=== PATIENT | male | born 1965 | race Caucasian/White ===

== ENCOUNTER 2018-04-06 02:26 | Emergency (ER) | payer BC ==
[2018-04-06] MEDS ORDERED: SODIUM CHLORIDE 0.9% 500 ML IV ONE (02:31)
[2018-04-06] MEDS ORDERED: ONDANSETRON HCL IV 4 MG/2 ML VIAL IV ONE (02:31)
[2018-04-06] MEDS ORDERED: KETOROLAC 30 MG/ML VIAL IVP ONE (02:31)
--- NOTE | 2018-04-06 02:36 | Emergency Department Record ---
History of Present Illness - General Chief complaint: Flank Pain Stated complaint: FLANK PAIN Time Seen by Provider: 04/06/18 02:27 Source: Patient Mode of Arrival: Ambulatory Limitations: No limitations - History of Present Illness Initial comments: 52 yo male presents with right flank pain. The onset was about 2 days ago. The pain has been coming and going. No fever. The pain has resolved around 10am this morning. It returned about midnight. He has had prior renal stones. He reports he had one stent in the past. He has some nausea. He denies any other recent changes in his health. MD Complaint: Other (Right flank pain) -: Days(s) (on and off 2 days) Location: Right flank Radiation: R flank Severity: Moderate Quality: Aching Consistency: Constant Improves with: None Worsens with: None Other Reports: Nausea/vomiting - Related Data Previous Rx's Medication Instructions Recorded Hydrocodone/Acetaminophen [[place] 1 tab PO Q6H PRN #10 tab 04/06/18 5mg/325mg] Tamsulosin HCl [Flomax] 0.4 mg PO DAILY #10 cap.er.24h 04/06/18 Allergies Allergy/AdvReac Type Severity Reaction Status Date / Time No Known Drug Allergies Allergy Verified 12/21/14 09:34 Review of Systems Constitutional: Denies: Chills, Fever, Malaise, Weakness Eyes: Denies: Eye discharge ENT: Denies: Congestion, Throat pain Respiratory: Denies: Cough, Dyspnea Cardiovascular: Denies: Chest pain, Palpitations, Syncope Endocrine: Denies: Fatigue Gastrointestinal: Reports: As per HPI, Abdominal pain, Nausea. Denies: Diarrhea Genitourinary: Denies: Dysuria, Frequency, Hematuria, Testicular pain Musculoskeletal: Reports: Back pain Skin: Denies: Bruising, Change in color, Rash Neurological: Denies: Headache Psychiatric: Denies: Anxiety Hematological/Lymphatic: Denies: Easy bleeding, Easy bruising Physical Exam - General General Appearance: Alert, Oriented x3, Cooperative, No acute distress Limitations: No limitations - Head Head exam: Atraumatic, Normal inspection - Eye Eye exam: Normal appearance. negative: Conjunctival injection - ENT ENT exam: Normal exam Ear exam: Normal external inspection Nasal Exam: Normal inspection Mouth exam: Normal external inspection - Neck Neck exam: Normal inspection - Respiratory Respiratory exam: Normal lung sounds bilaterally. negative: Respiratory distress - Cardiovascular Cardiovascular Exam: Regular rate, Normal rhythm, Normal heart sounds - GI/Abdominal GI/Abdominal exam: Soft. negative: Distended, Guarding, Rebound, Rigid, Tenderness - Rectal Rectal exam: Deferred - exam: Deferred - Extremities Extremities exam: Normal inspection. negative: Pedal edema, Tenderness - Back Back exam: Reports: Full ROM. Denies: CVA tenderness (R), CVA tenderness (L), Paraspinal tenderness, Rash noted, Tenderness, Vertebral tenderness - Neurological Neurological exam: Alert, Oriented X3 - Psychiatric Psychiatric exam: Normal affect, Normal mood. negative: Agitated, Anxious - Skin Skin exam: Dry, Intact, Normal color, Warm. negative: Abrasion, Cyanosis, Diaphoretic, Erythema Course - Reevaluation(s) Reevaluation #1: The labs were reviewed The CBC demonstrated a WBC count of 18 The CR is 1.3 with normal GFR greater that 60 UA with blood otherwise negative for any signs of infection Pain not controlled. Morphine ordered. 04/06/18 03:11 The patient now reports good pain control. No nausea. Waiting for CT report. 04/06/18 03:41 04/06/18 03:[address] was reviewed. 4mm x 3mm obstructing proximal right renal stone. Bilateral non obstructing stones largest on the right at 3 x 2mm. 04/06/18 05:08 The patient remains comfortable at this time. 04/06/18 06:37 We discussed home care, follow up and reasons to return. Medical Decision Making - Lab Data Result diagrams: 04/06/18 02:35 04/06/18 02:35 Disposition Disposition: Discharge Clinical Impression: Renal colic on right side Disposition: Home, Self-Care Condition: (1) Good Instructions: Flank Pain (ED) Additional Instructions: Take the prescriptions provided today as directed. Call your family doctor. Call to schedule the next available appointment for a recheck. Return to ED if your symptoms worsen or if you have any new concerns. Review the final Emergency Record and test results with your doctor on follow up You have been referred to urology for follow up of your right sided renal stone. Call today to schedule an appointment Prescriptions: Hydrocodone/Acetaminophen [[place] 5mg/325mg] 1 tab PO Q6H PRN #10 tab PRN Reason: Pain - General Tamsulosin HCl [Flomax] 0.4 mg PO DAILY #10 cap.er.24h Referrals: [facility] Specialty Clinics [Provider Group] EWA HUIZAR M.D. [MEDICAL DOCTOR] - Forms: Patient Portal Access Quality - Quality Measures Quality Measures: N/A - Blood Pressure Screening Does Patient Have Any of the Following: No Blood Pressure Classification: Pre-Hypertensive BP Reading Systolic Measurement: 170 Diastolic Measurement: 88 Screening for High Blood Pressure: < Pre-Hypertensive BP, F/U Documented > [ G8950] Pre-Hypertensive Follow-up Interventions: Referral to alternative/primary care provider.
[2018-04-06 02:49] LABS: BASO % 0.3 % (0-6); EOS % 0.9 % (0-6); GRAN % 71.2 % (47-80); HEMATOCRIT 46.5 % (42.0-52.0); HEMOGLOBIN 16.1 gm/dl (14.0-18.0); MEAN CELL VOLUME 92.8 fl (81-97); MEAN CORPUSCULAR HEMOGLOBIN 32.1 pg (27-33); MEAN CORPUSCULAR HGB CONC 34.6 g/dl (32-36); MEAN PLATELET VOLUME 11.9 fl (7.4-10.4); MONO % 14.6 % (0-9); PLATELET COUNT 312 K/uL (130-400); RED BLOOD COUNT 5.01 M/uL (4.40-5.70); RED CELL DISTRIBUTION WIDTH 14.9 % (11.5-14.5); WHITE BLOOD COUNT W/O DIFF 18.2 K/uL (4.2-12.2)
[2018-04-06 02:56] LABS: URINE APPEARANCE CLEAR; URINE BILIRUBIN NEGATIVE (NEGATIVE); URINE BLOOD SMALL (NEGATIVE); URINE COLOR YELLOW; URINE GLUCOSE (UA) NEGATIVE (NEGATIVE); URINE KETONE NEGATIVE (NEGATIVE); URINE LEUKOCYTE ESTERASE NEGATIVE (NEGATIVE); URINE NITRITE NEGATIVE (NEGATIVE); URINE PROTEIN TRACE (NEGATIVE)
[2018-04-06 02:58] LABS: BLOOD UREA NITROGEN 27 mg/dL (6-20); CREATININE 1.3 mg/dL (0.7-1.2); EST GLOMERULAR FILTRATION RATE > 60 mL/min
[2018-04-06 02:59] LABS: URINE BACTERIA NONE SEEN; URINE EPITHELIAL CELLS 0 - 2 (FEW); URINE WBC 0 - 2 (0-2/hpf)
[2018-04-06 03:01] LABS: GLUCOSE,RANDOM 164 mg/dL (74-109)
[2018-04-06] MEDS ORDERED: TAMSULOSIN HCL 0.4 MG CAP.ER.24H PO ONE (03:07)
[2018-04-06] MEDS ORDERED: MORPHINE SULFATE 10 MG/ML VIAL IVP ONE (03:10)
[2018-04-06] MEDS ORDERED: HYDROCODONE/APAP 5/325MG TABLET PO ONE (06:35)
--- NOTE | 2018-04-08 14:06 | CT SCAN REPORT ---
EXAM: CT SCAN ABDOMEN/PELVIS WO CONTRAST HISTORY: RIGHT-SIDED FLANK AND BACK PAIN FOR TWO DAYS. HISTORY OF RENAL STONES. HISTORY ALSO OF HODGKIN DISEASE AND THYROID CANCER. TECHNIQUE: Routine noncontrast CT abdomen and pelvis. COMPARISON: None. FINDINGS: Lung bases clear. Unremarkable noncontrast appearance of the liver, gallbladder, adrenal glands, and pancreas. Spleen is not visualized compatible with provided history of prior splenectomy. 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 Upper pole moiety is nondilated and without calculi. Mild to moderate dilation of the right lower pole moiety. 3 mm calculus within the lower renal pole. 5 mm calculus within the proximal aspect of the right lower pole moiety ureter. Nonobstructing left lower pole intrarenal calculus. Urinary bladder is nondistended. No definite bladder calculi. No focal colonic thickening or inflammatory changes. Noninflamed appendix in the right lower quadrant. Stomach and small bowel are nondilated. No free air or free fluid. Multiple nonenlarged retroperitoneal lymph nodes are noted. Minimal prostatic calcifications. Mildly patulous fat-containing left inguinal canal. Aortoiliac arterial access is minimally calcified without evidence of aneurysmal dilatation. Likely moderate bilateral hip joint osteoarthrosis. IMPRESSION: 1. OBSTRUCTING 5 MM CALCULOUS WITHIN THE PROXIMAL RIGHT URETER RESULTING IN MILD TO MODERATE RIGHT HYDRONEPHROSIS. ADDITIONAL BILATERAL INTRARENAL CALCULI ARE NOTED. 2. 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 JOB NUMBER: [id number] MTDD
== END 2018-04-06 06:48 | disposition home or self-care (01) ==
LOC: ER 02:26
DX: N20.0 Calculus of kidney (principal); R11.2 Nausea with vomiting, unspecified; Z87.442 Personal history of urinary calculi; Z85.71 Personal history of Hodgkin lymphoma; Z85.850 Personal history of malignant neoplasm of thyroid; F17.210 Nicotine dependence, cigarettes, uncomplicated
CPT/HCPCS: 99284 ×2; 96374; 96375; 96361; 85025; 80048; 81001; 74176; J1885; J2405; J2270

== ENCOUNTER 2018-04-08 06:25 | Emergency (ER) | payer BC ==
[2018-04-08] MEDS ORDERED: MORPHINE SULFATE 10 MG/ML VIAL IVP ONE (06:40)
[2018-04-08] MEDS ORDERED: ONDANSETRON HCL IV 4 MG/2 ML VIAL IVP ONE (06:41)
[2018-04-08] MEDS ORDERED: 0.9 % SODIUM CHLORIDE 1,000 ML BAG IV ONE (06:41)
[2018-04-08 06:49] LABS: BASO % 0.3 % (0-6); EOS % 0.4 % (0-6); GRAN % 76.7 % (47-80); HEMATOCRIT 44.2 % (42.0-52.0); HEMOGLOBIN 15.2 gm/dl (14.0-18.0); LYMPH % 11.6 % (16-45); MEAN CELL VOLUME 93.6 fl (81-97); MEAN CORPUSCULAR HEMOGLOBIN 32.2 pg (27-33); MEAN CORPUSCULAR HGB CONC 34.4 g/dl (32-36); MEAN PLATELET VOLUME 12.2 fl (7.4-10.4); PLATELET COUNT 297 K/uL (130-400); RED BLOOD COUNT 4.72 M/uL (4.40-5.70); RED CELL DISTRIBUTION WIDTH 14.6 % (11.5-14.5); WHITE BLOOD COUNT W/O DIFF 19.4 K/uL (4.2-12.2)
--- NOTE | 2018-04-08 06:49 | Emergency Department Record ---
History of Present Illness - General Source: Patient Mode of Arrival: Ambulatory Limitations: No limitations - History of Present Illness Initial comments: pt c/o r flank pain. pt was here 2 days ago and was found to have a 4x3 mm stone in the proximal ureter w some mild renal insufficiency. he has been having intermittent pain since. the pain returned 4 hours ago and has not stopped. MD Complaint: Other Onset/Timin -: Hour(s) Location: Right flank Severity scale (1-10): 10 Quality: Sharp, Stabbing Consistency: Constant, Getting worse Improves with: None Worsens with: None Reports: Nausea/vomiting <Karmen aGn - Last Filed: 04/08/18 06:44> <Dany Mejia - Last Filed: 04/08/18 09:13> - General Chief complaint: Flank Pain Stated complaint: FLANK PAIN Time Seen by Provider: 04/08/18 06:36 - Related Data Previous Rx's Medication Instructions Recorded Hydrocodone/Acetaminophen [[place] 1 tab PO Q6H PRN #10 tab 04/06/18 5mg/325mg] Tamsulosin HCl [Flomax] 0.4 mg PO DAILY #10 cap.er.24h 04/06/18 Allergies Allergy/AdvReac Type Severity Reaction Status Date / Time No Known Drug Allergies Allergy Verified 12/21/14 09:34 Travel Screening - Travel/Exposure Within Last 30 Days Have you traveled within the last 30 days?: No <Karmen Gan - Last Filed: 04/08/18 06:44> Review of Systems Reviewed: No additional complaints except as noted below Constitutional: Reports: As per HPI. Denies: Chills, Fever, Malaise, Night sweats, Weakness, Weight change Eyes: Reports: As per HPI. Denies: Eye discharge, Eye pain, Photophobia, Vision change ENT: Reports: As per HPI. Denies: Congestion, Dental pain, Ear pain, Epistaxis , Hearing loss, Throat pain Respiratory: Reports: As per HPI. Denies: Cough, Dyspnea, Hemoptysis, Stridor, Wheezes Cardiovascular: Reports: As per HPI. Denies: Arrhythmia, Chest pain, Dyspnea on exertion, Edema, Murmurs, Orthopnea, Palpitations, Paroxysmal nocturnal dyspnea, Rheumatic Fever, Syncope Endocrine: Reports: As per HPI. Denies: Fatigue, Heat or cold intolerance, Polydipsia, Polyuria Gastrointestinal: Reports: As per HPI, Abdominal pain, Nausea, Vomiting. Denies : Constipation, Diarrhea, Hematemesis, Hematochezia, Melena Genitourinary: Reports: As per HPI, Testicular pain. Denies: Dysuria, Frequency , Hematuria, Incontinence, Retention, Testicular mass, Urgency Musculoskeletal: Reports: As per HPI, Back pain. Denies: Arthralgia, Gout, Joint swelling, Myalgia, Neck pain Skin: Reports: As per HPI. Denies: Bruising, Change in color, Change in hair/ nails, Lesions, Pruritus, Rash Neurological: Reports: As per HPI. Denies: Abnormal gait, Confusion, Headache, Numbness, Paresthesias, Seizure, Tingling, Tremors, Vertigo, Weakness Psychiatric: Reports: As per HPI. Denies: Anxiety, Auditory hallucinations, Depression, Homicidal thoughts, Suicidal thoughts, Visual hallucinations Hematological/Lymphatic: Reports: As per HPI. Denies: Anemia, Blood Clots, Easy bleeding, Easy bruising, Swollen glands <Karmen Gan - Last Filed: 04/08/18 06:44> Past Medical History - SOCIAL HISTORY Smoking Status: Current every day smoker Alcohol Use: None Drug Use: None - RESPIRATORY Hx Respiratory Disorders: No - CARDIOVASCULAR Hx Cardio Disorders: Yes Hx Irregular Heartbeat: Yes (had ablation and it's corrected) - NEURO Hx Neuro Disorders: No - GI Hx GI Disorders: No - Hx Genitourinary Disorders: Yes Hx Kidney Stones: Yes (had previous renal stent) - ENDOCRINE Hx Endocrine Disorders: No - MUSCULOSKELETAL Hx Musculoskeletal Disorders: Yes Hx Arthritis: Yes - PSYCH Hx Psych Problems: No - HEMATOLOGY/ONCOLOGY Hx Hematology/Oncology Disorders: Yes Hx Cancer: Yes (Thyroid and Hodgkin's) Hx Chemotherapy: Yes Hx Radiation Therapy: No <Karmen Gan - Last Filed: 04/08/18 06:44> Family Medical History Any Significant Family History?: Yes Hx Stroke: Father <Karmen Gan - Last Filed: 04/08/18 06:44> Physical Exam - General General Appearance: Alert, Oriented x3, Cooperative, Moderate distress - Head Head exam: Normal inspection - Eye Eye exam: Normal appearance, PERRL, EOMI Pupils: Normal accommodation - ENT ENT exam: Normal exam, Mucous membranes moist, Normal external ear exam, Normal orophraynx Ear exam: Normal external inspection. negative: External canal tenderness Nasal Exam: Normal inspection. negative: Discharge, Sinus tenderness Mouth exam: Normal external inspection, Tongue normal Teeth exam: Normal inspection. negative: Dental caries Throat exam: Normal inspection. negative: Tonsillar erythema, Tonsillar exudate - Neck Neck exam: Normal inspection, Full ROM. negative: Tenderness - Respiratory Respiratory exam: Normal lung sounds bilaterally. negative: Respiratory distress - Cardiovascular Cardiovascular Exam: Regular rate, Normal rhythm, Normal heart sounds - GI/Abdominal GI/Abdominal exam: Soft, Normal bowel sounds, Tenderness - Rectal Rectal exam: Deferred - exam: Deferred - Extremities Extremities exam: Normal inspection, Full ROM, Normal capillary refill. negative: Tenderness - Back Back exam: Reports: Normal inspection, Full ROM. Denies: Muscle spasm, Rash noted, Tenderness - Neurological Neurological exam: Alert, CN II-XII intact, Normal gait, Oriented X3 - Psychiatric Psychiatric exam: Normal affect, Normal mood - Skin Skin exam: Dry, Intact, Normal color, Warm <Karmen Gan - Last Filed: 04/08/18 06:44> Course Vital Signs 04/08/18 06:37 Temperature 97.5 F L Pulse Rate [ 73 Pulse Ox Probe] Respiratory 36 H Rate Blood Pressure 103/65 [Left Arm] Pulse Ox 99 - Reevaluation(s) Reevaluation #1: 04/08/18 06:[address] mejia <Karmen Gan - Last Filed: 04/08/18 06:44> Vital Signs 04/08/18 04/08/18 06:37 07:33 Temperature 97.5 F L 98.4 F Pulse Rate [ 73 61 Pulse Ox Probe] Respiratory 36 H 16 Rate Blood Pressure 103/65 133/83 [Left Arm] Pulse Ox 99 95 - Reevaluation(s) Reevaluation #2: The patient is doing better at this time. His pain is much improved and we are waiting on his CT report and urinalysis. 04/08/18 07:58 Reevaluation #3: Due to the patient's continued pain I did feel the need to consult Dr. Brar. I did contact him at [facility] and he would like the patient transferred there for further evaluation. I then did contact Dr. Garcia in the ED and he did accept the patient in an ER to ER transfer. 04/08/18 08:45 <Dany Mejia - Last Filed: 04/08/18 09:13> Medical Decision Making - Lab Data Result diagrams: 04/08/18 06:40 04/08/18 06:40 <Karmen Gan - Last Filed: 04/08/18 06:44> - Data Complexity MDM Data: Labs Ordered and/or Reviewed, X-Ray Ordered and/or Reviewed - Lab Data Result diagrams: 04/08/18 06:30 04/08/18 06:30 Lab Results 04/08/18 04/08/18 Range/Units 06:30 06:30 WBC 19.4 H (4.2-12.2) K/uL RBC 4.72 (4.40-5.70) M/uL Hgb 15.2 (14.0-18.0) gm/dl Hct 44.2 (42.0-52.0) % MCV 93.6 (81-97) fl MCH 32.2 (27-33) pg MCHC 34.4 (32-36) g/dl RDW 14.6 H (11.5-14.5) % Plt Count 297 (130-400) K/uL MPV 12.2 H (7.4-10.4) fl Gran % 76.7 (47-80) % Lymphocytes % 11.6 L (16-45) % Monocytes % 11.0 H (0-9) % Eosinophils % 0.4 (0-6) % Basophils % 0.3 (0-6) % Sodium 139 (136-145) mmol/L Potassium 4.7 H (3.4-4.5) mmol/L Chloride 98 (98-107) mmol/L Carbon Dioxide 24.0 (22-29) mmol/L Anion Gap 17.0 H (7-16) BUN 24 H (6-20) mg/dL Creatinine 1.3 H (0.7-1.2) mg/dL Estimated GFR > 60 mL/min Random Glucose 146 H (74-109) mg/dL Calcium 9.4 (8.6-10.0) mg/dL - Radiology Data Radiology results: Report reviewed (CT: R 6x3 mm distal R ureter stone with hydro.) <Dany Mejia - Last Filed: 04/08/18 09:13> Disposition <Karmen Gan - Last Filed: 04/08/18 06:44> <Dany Mejia - Last Filed: 04/08/18 09:13> Forms: Patient Portal Access Quality - Blood Pressure Screening Does Patient Have Any of the Following: No Blood Pressure Classification: Normal BP Reading Systolic Measurement: 103 Diastolic Measurement: 65 Screening for High Blood Pressure: < Normal BP, F/U Not Required > [G8783] <Karmen Gan - Last Filed: 04/08/18 06:44> - Quality Measures Quality Measures: N/A - Blood Pressure Screening View Details: Yes Does Patient Have Any of the Following: No Blood Pressure Classification: Hypertensive Reading Systolic Measurement: 138 Diastolic Measurement: 91 Screening for High Blood Pressure: < First Hypertensive BP, F/U Documented > [ G8950] First Hypertensive Follow-up Interventions: Referral to alternative/primary care provider. <Dany Mejia - Last Filed: 04/08/18 09:13>
[2018-04-08 07:00] LABS: BLOOD UREA NITROGEN 24 mg/dL (6-20); CREATININE 1.3 mg/dL (0.7-1.2); EST GLOMERULAR FILTRATION RATE > 60 mL/min
[2018-04-08 07:03] LABS: GLUCOSE,RANDOM 146 mg/dL (74-109)
[2018-04-08] MEDS ORDERED: HYDROMORPHONE HCL 2 MG/ML VIAL IVP ONE ×3 (07:19→08:41)
[2018-04-08 08:09] LABS: URINE APPEARANCE CLOUDY; URINE BILIRUBIN NEGATIVE (NEGATIVE); URINE BLOOD MODERATE (NEGATIVE); URINE COLOR YELLOW; URINE GLUCOSE (UA) NEGATIVE (NEGATIVE); URINE KETONE NEGATIVE (NEGATIVE); URINE LEUKOCYTE ESTERASE NEGATIVE (NEGATIVE); URINE NITRITE NEGATIVE (NEGATIVE); URINE PROTEIN NEGATIVE (NEGATIVE); URINE UROBILINOGEN 0.2 E.U./dL (0.20 - 1.00)
[2018-04-08 08:17] LABS: URINE BACTERIA NONE SEEN; URINE EPITHELIAL CELLS 0 - 2 (FEW); URINE WBC NONE SEEN (0-2/hpf)
[2018-04-08] MEDS ORDERED: KETOROLAC 30 MG/ML VIAL IVP ONE (08:30)
--- NOTE | 2018-04-11 12:54 | CT SCAN REPORT ---
EXAM: CT OF THE ABDOMEN AND PELVIS HISTORY: RIGHT FLANK PAIN. TECHNIQUE: CT of the abdomen and pelvis was performed without intravenous contrast. Comparison: CT of the abdomen and pelvis 04/06/18. FINDINGS: The lung bases are unremarkable. There is a 6 x 5 mm calculus identified in the distal right ureter. This is located about 2 cm above the right ureterovesical junction and is more distal in the ureter than on the recent previous study. This causes moderate hydronephrosis. This is similar to the previous study. Some renal enlargement and perinephric fat stranding are also present. No perinephric fluid collections are seen. There are two nonobstructing intrarenal calculi in the lower pole of the right kidney measuring about 3 mm in size. There is a 3 mm nonobstructing calculus in the lower pole of the left kidney. No left ureteral calculus seen. The liver is unremarkable. The spleen is surgically absent. No pancreatic mass or inflammatory change. The bile ducts are not dilated. There are no calcified gallstones. There is no aortic aneurysm. No periaortic mass or adenopathy. There are no dilated bowel loops. The appendix is unremarkable. There is no pelvic mass, abscess, or adenopathy. There is no free air or free fluid. IMPRESSION: 1. 6 X 3 MM CALCULUS IN THE DISTAL RIGHT URETER. THIS HAS MIGRATED CAUDALLY SINCE THE PREVIOUS STUDY. THIS CAUSES MODERATE RIGHT HYDRONEPHROSIS WITH SOME RENAL ENLARGEMENT AND PERINEPHRIC FAT STRANDING. 2. SMALL BILATERAL NONOBSTRUCTING INTRARENAL CALCULI. 3. PRIOR SPLENECTOMY. 4. SEE ABOVE FOR FULL DISCUSSION. JOB NUMBER: [id number] MTDD
--- NOTE | 2018-04-15 18:32 | Emergency Department Record ---
History of Present Illness - General Chief complaint: Flank Pain Stated complaint: FLANK PAIN Time Seen by Provider: 04/08/18 06:36 Source: Patient Mode of Arrival: Ambulatory Limitations: No limitations - History of Present Illness Onset/Timin -: Hour(s) Location: Right flank Severity scale (1-10): 10 Quality: Sharp, Stabbing Consistency: Constant, Getting worse Improves with: None Worsens with: None Reports: Nausea/vomiting - Related Data Previous Rx's Medication Instructions Recorded Hydrocodone/Acetaminophen [[place] 1 tab PO Q6H PRN #10 tab 04/06/18 5mg/325mg] Tamsulosin HCl [Flomax] 0.4 mg PO DAILY #10 cap.er.24h 04/06/18 Allergies Allergy/AdvReac Type Severity Reaction Status Date / Time No Known Drug Allergies Allergy Verified 12/21/14 09:34 Travel Screening - Travel/Exposure Within Last 30 Days Have you traveled within the last 30 days?: No Review of Systems Constitutional: Reports: As per HPI. Denies: Chills, Fever, Malaise, Night sweats, Weakness, Weight change Eyes: Reports: As per HPI. Denies: Eye discharge, Eye pain, Photophobia, Vision change ENT: Reports: As per HPI. Denies: Congestion, Dental pain, Ear pain, Epistaxis , Hearing loss, Throat pain Respiratory: Reports: As per HPI. Denies: Cough, Dyspnea, Hemoptysis, Stridor, Wheezes Cardiovascular: Reports: As per HPI. Denies: Arrhythmia, Chest pain, Dyspnea on exertion, Edema, Murmurs, Orthopnea, Palpitations, Paroxysmal nocturnal dyspnea, Rheumatic Fever, Syncope Endocrine: Reports: As per HPI. Denies: Fatigue, Heat or cold intolerance, Polydipsia, Polyuria Gastrointestinal: Reports: As per HPI, Abdominal pain, Nausea, Vomiting. Denies : Constipation, Diarrhea, Hematemesis, Hematochezia, Melena Genitourinary: Reports: As per HPI, Testicular pain. Denies: Dysuria, Frequency , Hematuria, Incontinence, Retention, Testicular mass, Urgency Musculoskeletal: Reports: As per HPI, Back pain. Denies: Arthralgia, Gout, Joint swelling, Myalgia, Neck pain Skin: Reports: As per HPI. Denies: Bruising, Change in color, Change in hair/ nails, Lesions, Pruritus, Rash Neurological: Reports: As per HPI. Denies: Abnormal gait, Confusion, Headache, Numbness, Paresthesias, Seizure, Tingling, Tremors, Vertigo, Weakness Psychiatric: Reports: As per HPI. Denies: Anxiety, Auditory hallucinations, Depression, Homicidal thoughts, Suicidal thoughts, Visual hallucinations Hematological/Lymphatic: Reports: As per HPI. Denies: Anemia, Blood Clots, Easy bleeding, Easy bruising, Swollen glands Past Medical History - SOCIAL HISTORY Smoking Status: Current every day smoker Alcohol Use: None Drug Use: None - RESPIRATORY Hx Respiratory Disorders: No - CARDIOVASCULAR Hx Cardio Disorders: Yes Hx Irregular Heartbeat: Yes (had ablation and it's corrected) - NEURO Hx Neuro Disorders: No - GI Hx GI Disorders: No - Hx Genitourinary Disorders: Yes Hx Kidney Stones: Yes (had previous renal stent) - ENDOCRINE Hx Endocrine Disorders: No - MUSCULOSKELETAL Hx Musculoskeletal Disorders: Yes Hx Arthritis: Yes - PSYCH Hx Psych Problems: No - HEMATOLOGY/ONCOLOGY Hx Hematology/Oncology Disorders: Yes Hx Cancer: Yes (Thyroid and Hodgkin's) Hx Chemotherapy: Yes Hx Radiation Therapy: No Family Medical History Any Significant Family History?: Yes Hx Stroke: Father Physical Exam - General Limitations: No limitations Course Vital Signs 04/08/18 04/08/18 04/08/18 06:37 07:33 08:30 Temperature 97.5 F L 98.4 F Pulse Rate [ 73 61 62 Pulse Ox Probe] Respiratory 36 H 16 16 Rate Blood Pressure 103/65 133/83 145/85 [Left Arm] Pulse Ox 99 95 95 04/08/18 09:00 Temperature 98.4 F Pulse Rate [ 71 Pulse Ox Probe] Respiratory 16 Rate Blood Pressure 138/91 [Left Arm] Pulse Ox 95 Medical Decision Making - Lab Data Result diagrams: 04/08/18 06:30 04/08/18 06:30 Lab Results 04/08/18 04/08/18 04/08/18 Range/Units 06:30 06:30 06:40 WBC 19.4 H (4.2-12.2) K/uL RBC 4.72 (4.40-5.70) M/uL Hgb 15.2 (14.0-18.0) gm/dl Hct 44.2 (42.0-52.0) % MCV 93.6 (81-97) fl MCH 32.2 (27-33) pg MCHC 34.4 (32-36) g/dl RDW 14.6 H (11.5-14.5) % Plt Count 297 (130-400) K/uL MPV 12.2 H (7.4-10.4) fl Gran % 76.7 (47-80) % Lymphocytes % 11.6 L (16-45) % Monocytes % 11.0 H (0-9) % Eosinophils % 0.4 (0-6) % Basophils % 0.3 (0-6) % Sodium 139 (136-145) mmol/L Potassium 4.7 H (3.4-4.5) mmol/L Chloride 98 (98-107) mmol/L Carbon Dioxide 24.0 (22-29) mmol/L Anion Gap 17.0 H (7-16) BUN 24 H (6-20) mg/dL Creatinine 1.3 H (0.7-1.2) mg/dL Estimated GFR > 60 mL/min Random Glucose 146 H (74-109) mg/dL Calcium 9.4 (8.6-10.0) mg/dL Urine Color Yellow Urine Appearance Cloudy Urine pH 6.0 (5.0-8.0) Ur Specific [place] 1.020 (1.002-1.030) Urine Protein Negative (NEGATIVE) Urine Glucose (UA) Negative (NEGATIVE) Urine Ketones Negative (NEGATIVE) Urine Blood Moderate (NEGATIVE) Urine Nitrite Negative (NEGATIVE) Urine Bilirubin Negative (NEGATIVE) Urine Urobilinogen 0.2 (0.20 - 1.00) E.U./dL Ur Leukocyte Esterase Negative (NEGATIVE) Urine RBC Too numerous to cnt (NONE SEEN) Urine WBC None seen (0-2/hpf) Ur Epithelial Cells 0 - 2 (FEW) Urine Bacteria None seen Disposition Clinical Impression: Renal colic on right side Disposition: Acute Care Hospital Transfer Forms: Patient Portal Access Quality - Quality Measures Quality Measures: N/A - Blood Pressure Screening View Details: Yes Does Patient Have Any of the Following: No Blood Pressure Classification: Hypertensive Reading Systolic Measurement: 138 Diastolic Measurement: 91 Screening for High Blood Pressure: < First Hypertensive BP, F/U Documented > [ G8950] First Hypertensive Follow-up Interventions: Referral to alternative/primary care provider.
== END 2018-04-08 09:27 | disposition short-term general hospital (02) ==
LOC: ER 06:25
DX: N13.2 Hydronephrosis with renal and ureteral calculous obstruction (principal); R11.2 Nausea with vomiting, unspecified; Z87.442 Personal history of urinary calculi; F17.210 Nicotine dependence, cigarettes, uncomplicated
CPT/HCPCS: 99285 ×2; 96376; 96374; 96375; 96361; 85025; 80048; 81001; 74176; J1885; J2405; J1170; J2270; J7030